=== PATIENT | female | born 1990 | race Caucasian/White ===

== ENCOUNTER 2018-07-31 21:02 | Emergency (ER) | payer MEDICAID, OTHER ==
[~2018-07-31] VITALS: Ht 162.6 cm; Wt 59.1 kg
[~2018-07-31 21:02] MED LIST: NO HOME MEDS
[2018-07-31 21:29] VITALS: BP 106/66
[2018-07-31] MEDS ORDERED: guaiFENesin/DM 10ml UD oral syrup PO ONE (23:15)
[2018-07-31] MEDS ORDERED: benzonatate 100mg capsule PO ONE (23:15)
[2018-07-31] MEDS ORDERED: BENZ-16 PO (23:16)
[2018-07-31] MEDS ORDERED: ROBCFL PO (23:16)
== END 2018-07-31 23:28 | disposition home or self-care (01) ==
LOC: ER 21:05
DX: J06.9 Acute upper respiratory infection, unspecified (principal); F12.90 Cannabis use, unspecified, uncomplicated; Z79.899 Other long term (current) drug therapy
CPT/HCPCS: 71046; 93005; 99283

== ENCOUNTER 2018-12-14 17:21 | Emergency (ER) | payer OTHER ==
[~2018-12-14] VITALS: Ht 162.6 cm; Wt 57.3 kg
[2018-12-14 17:49] VITALS: BP 113/63
[2018-12-14] MEDS ORDERED: LIDOcaine Viscous 15ml cup MM PRN (19:35)
[2018-12-14 19:53] LABS: MONOTEST NEGATIVE (Neg)
== END 2018-12-14 19:52 | disposition home or self-care (01) ==
LOC: ER 17:22
DX: J02.8 Acute pharyngitis due to other specified organisms (principal); B97.89 Other viral agents as the cause of diseases classified elsewhere; F12.90 Cannabis use, unspecified, uncomplicated
CPT/HCPCS: 36415; 86308; 87081; 87880; 99283